=== PATIENT | female | born 1935 | race Caucasian/White ===

== ENCOUNTER → 2016-07-19 | Outpatient (CLI) | payer OTHER, BC ==
--- NOTE | 2016-07-19 16:22 | DI ---
History: Cervical pain with radiculopathy. Evaluate arthritis condition. Procedure: 4 view study including flexion/extension. Prior examination: None. Findings: Neutral lateral with weight shows anterior translation of C4 relative to C5, 5 mm. With fle xion, the distance is 4 mm. There is good disc height preservation except at C6-C7. Anterior osteophy maria victoria are noted at C5-6 and C6-7. Cervicothoracic junction is not well-visualized overall but appears n ormal with weightbearing and flexion image only. Anterior translation of C4 relative to C5 is 3 mm wi th weightbearing and extension Impression: Some variation in anterior translation of C4 relative to C5 but present on all 3 views, 5 mm with weights, neutral 4 mm with weight, flexion and 3 mm with weights, extension. Degenerative ch anges as mentioned above
--- NOTE | 2016-07-19 16:26 | DI ---
History: Mid back pain. Two-view study. Prior: None. Findings: Height loss T12 anteriorly, about 30%compared with other adjacent bones. Some concavity of the superior vertebral body endplate of L1. Impression: Partial collapse of T12. Some osteopenia noted throughout. Partial depiction of L1 shows some concavity of the superior vertebral body endplate
--- NOTE | 2016-07-19 17:04 | DI ---
History: Mid back and low back pain. 4 view. Prior study: None. Findings: About 33% height loss superior vertebral body endplate of T12. No posterior height loss. Sl ight concavity superior vertebral body endplate of L1. Alignment anatomic. Abdominal aorta heavily ca lcified. Slight disc space narrowing noted at L4-5 and L5-S1 Impression: Some height loss T12 superiorly. Mild concavity superior vertebral body endplate of L1 wh ich may be associated with chronic fracture. Calcifications abdominal aorta without visible aneurysma l dilatation L4-5 and L5-S1 discs are slightly narrowed
== END ==
LOC: MOB RAD 13:57
PROVIDERS: ATTEND Physician Assistant
DX: M47.26 Other spondylosis with radiculopathy, lumbar region (principal); M47.22 Other spondylosis with radiculopathy, cervical region; M48.54XA Collapsed vertebra, not elsewhere classified, thoracic region, initial encounter for fracture
CPT/HCPCS: 72050; 72070; 72110

== ENCOUNTER → 2016-07-26 | Outpatient (CLI) | payer OTHER, BC ==
--- NOTE | 2016-07-26 21:58 | DI ---
MRI CERVICAL SPINE SCAN, 07/26/2016 12:46 PM: Clinical History: Cervical spondylosis with radiculopathy. Previous Exam: None. Sequences: Sagittal T1and T2 weighted. Axial T2 PLUS and FE 3D DUAL. Coronal T1 scans through the upp er cervical spine. The vertebral bodies are of normal height and size. Severe disc space narrowing is present at C5-6 an d C6-7. The remaining disc spaces are of normal height. All cervical disc spaces show desiccation dinah nge. The cervical cord and cerebellar tonsils are normal. C2-3 through C4-5 disc spaces are normal. C 5-6 has minimal posterior subluxation of C5 on C6 by 1 mm and there is a small bulging but not hernia keena disc. There is no canal or left neural foraminal stenosis. There is right neural foraminal stenos is. C6-7 has a mild bulging but not herniated disc without canal stenosis. There is mild bilateral ne ural foraminal stenosis. C7-T1 has a mild central bulging but not herniated disc without canal or tim ral foraminal stenosis. The thoracic disc spaces from T1-2 through T4-5 are normal. Readin. There are bulging but not herniated discs without canal or significant neural foraminal stenosis at C6-7 and C7-T1. There is a bulging disc with right neural foraminal stenosis but no left neural fo raminal stenosis or canal stenosis at C5-6. There is also a mild posterior subluxation of C5 on C6 by 1 mm. 2. C2-3 through C4-5, and T1-2 through T4-5 disc spaces are normal.
== END ==
LOC: MRI 12:34
PROVIDERS: ATTEND Physician Assistant
DX: M47.22 Other spondylosis with radiculopathy, cervical region (principal); M47.812 Spondylosis without myelopathy or radiculopathy, cervical region
CPT/HCPCS: 72141

== ENCOUNTER → 2016-08-03 | Outpatient (CLI) | payer OTHER, BC ==
--- NOTE | 2016-08-03 13:07 | DI ---
CT BONE DENSITOMETRY OF THE SPINE AND HIP, 08/03/2016 9:52 AM : Clinical History: Asymptomatic post menopausal patient. Screening. Previous Exam: None at this facility. 3D Quantitative CT (QCT) Bone Mineral Densitometry: The [place] scans show compression fractures of T12 and L1. Low dose scans are sampled through the mi dbodies of L2 and L3. Average bone mineral density (BMD) is 52.0 mg/mL corresponding to a volumetric T-score of -4.5 and Z-score of -0.7. The [employer]'s (A[employer]) volumetric QCT BMD con version table categorizes this patient as having osteoporosis. of the lumbar spine. With the presence of the compression fractures at T12 and L1, this patient by definition has severe osteoporosis. CT X-Ray Absorptiometry (CTXA) Bone Mineral Densitometry of the Left Hip: Total hip BMD: 542 mg/cm2 T-score: -3.3 Z-score: NA Femoral neck BMD: 514 mg/cm2 T-score: -2.5 Z-score: NA Note: T-scores of the spine and hip are discordant approximately 40% of the times. Changes in actual QCT or CTXA/DEXA measurements are more reliable in assessment of change in BMD status rather than dinah nges in T-scores. READIN. The QCT lumbar spine BMD value by ACR's 3D volumetric to 2D areal conversion categorizes this pat ient as having osteoporosis of the lumbar spine. The QCT spine T-score is -4.5. The compression fract ures of T12 and L1 indicate this patient by definition has severe osteoporosis. 2. The CTXA total hip and femoral neck BMD T-scores are -3.3 and -2.5, respectively. The left total hip T-score indicates this patient has osteoporosis.
--- NOTE | 2016-08-03 19:19 | DI ---
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 Previous Exam: None. Technique: Sagittal and axial T2 weighted; sagittal T1 weighted and T2 STIR; and axial PD. There are compression fractures of T12 and L1 with loss of height of approximately 20% anteriorly. Th e show intermediate signal intensity on the SPIR sequence and there are hypointense on the T1-weighte d and T2-weighted scans indicating these are probably subacute. By definition, this patient has sever e osteoporosis. The remaining lumbar vertebral bodies are of normal height. There is disc space narro wing at L1-2, L2-3, L4-5, and L5-S1. All lumbar disc spaces show desiccation change. The cord termina maria victoria at T12 and the conus medullaris is normal. The T10-11 disc space is normal. T11-T12 disc space sh ows mild posterior displacement of the posterior and superior aspect of the body of T12 into the chichi l. There is no neural foraminal or canal stenosis. T12-L1 through L3-4 have bulging but not herniated discs without canal or neural foraminal stenosis. L4-5 has a more prominent circumferentially bulgin g but not herniated disc without canal or neural foraminal stenosis. L5-S1 has a central and left lat eral bulging but not herniated disc without canal or neural foraminal stenosis. Readin. There are subacute compression fractures at T12 and L1. This would indicate the patient has sever e osteoporosis. 2. There are bulging but not herniated discs without canal or neural foraminal stenosis from T12-L1 through L5-S1. 3. The posterior superior aspect of the body of T12 does protrude into the canal but there is no can al or neural foraminal stenosis. 4. The T10-11 disc space is normal.
== END ==
LOC: CT 09:46 → MOB LAB 09:46
PROVIDERS: ATTEND Physician Assistant
DX: M85.80 Other specified disorders of bone density and structure, unspecified site (principal); M47.26 Other spondylosis with radiculopathy, lumbar region; M48.54XA Collapsed vertebra, not elsewhere classified, thoracic region, initial encounter for fracture; R53.83 Other fatigue
CPT/HCPCS: 72148; 77078; 82306